=== PATIENT | male | born 1975 | race Caucasian/White ===

== ENCOUNTER → 2019-11-17 19:10 | Outpatient (BNVA) | payer SELFPAY | PROVIDERS: Family Provider Family Medicine; PCP Family Medicine; Visit Provider Emergency Medicine | DX: E66.01 Morbid (severe) obesity due to excess calories (principal); I10 Essential (primary) hypertension; R60.9 Edema, unspecified | CPT/HCPCS: 80053; 80061; 83880; 84443; 85025 ==